=== PATIENT | male | born 1970 | race African-American/Black ===

== ENCOUNTER 2024-05-29 13:16 | Emergency (ER) | payer OTHER ==
[~2024-05-29] VITALS: Ht 180.3 cm; Wt 110.0 kg
[~2024-05-29 13:16] MED LIST: NOCURR
[2024-05-29 13:20] VITALS: TEMP 98.7
[2024-05-29] MEDS: TAMSULOSIN HCL 0.4 MG CAPSULE PO ONE (14:58)
[2024-05-29] MEDS ORDERED: TAMS0.4C94 PO (15:09)
[2024-05-29 15:22] VITALS: BP 141/94; PULSE 93; RESP 16; O2SAT 98
== END 2024-05-29 15:35 | disposition home or self-care (01) ==
LOC: EMS 13:16
DX: N32.0 Bladder-neck obstruction (principal); N40.1 Benign prostatic hyperplasia with lower urinary tract symptoms; F17.210 Nicotine dependence, cigarettes, uncomplicated
CPT/HCPCS: 99284; Z7502; Z7610